=== PATIENT | female | born 1950 | race Caucasian/White ===

== ENCOUNTER 2016-11-14 10:51 | Outpatient (CLI) | payer MEDICARE ==
--- NOTE | 2016-11-14 13:56 | RAD ---
LEFT KNEE 3 VIEWS: DATE: 11/14/16. FINDINGS: Moderately severe osteoarthritis is present consisting of medial joint space narrowing and large ost eophytes. Bony sclerosis is minimal. No fracture or large joint effusion was seen. Some patellofe moral osteophytes are noted. IMPRESSION: Moderately severe osteoarthritis. POS: HOME
== END 2016-11-14 10:52 | disposition home or self-care (01) ==
LOC: BURRAD 10:51
PROVIDERS: ATTEND Family Medicine
DX: M25.562 Pain in left knee (principal); G89.29 Other chronic pain; M17.12 Unilateral primary osteoarthritis, left knee